=== PATIENT | female | born 1935 | race Caucasian/White ===

== ENCOUNTER 2016-10-05 13:34 | Outpatient (CLI) | payer MEDICARE, OTHER ==
--- NOTE | 2016-10-05 15:45 | Diagnostic Imaging Report ---
CARLOS MCKEON [facility] [address] [facility] [address] [place] [address]. [id number] Report Submission Date: Oct 05, 2016 3:21:36 PM CDT Patient Study Name: CAROLINE CHUN Date: Oct 05, 2016 1:57:49 PM CDT Modality Type: CR Gender: F Description: SPINE : 37 Institution: [facility] Physician: CARLOS MCKEON 3 views lumbar spine History: L-SPINE, WORSENING LOW BACK PAIN, FALL ON 10/03/16 Findings: No comparison studies Patient is post posterior lumbar fusion [id number] S1, sparing L2. Disc spacers at L4-L5. Hardware is intact. Extensive degenerative changes at the thoracic and lumbar spine with multilevel decreased vertebral body heights. No acute fracture. Minimal grade I anterolisthesis L4 on L5 and appears chronic Impression: Lower thoracic and lumbar posterior fusion, intact hardware. No acute fracture. Extensive multilevel degenerative changes Grade I anterolisthesis L4 on L5. Electronically signed on Oct 05, 2016 3:21:36 PM CDT by: Yolanda RIOS
--- NOTE | 2016-10-05 15:46 | Diagnostic Imaging Report ---
CARLOS MCKEON [facility] [address] [employer] [address] [place], [place]. [address] Report Submission Date: Oct 05, 2016 3:13:43 PM CDT Patient Study Name: CAROLINE CHUN Date: Oct 05, 2016 2:02:17 PM CDT Modality Type: CR Gender: F Description: SHOULDER : 37 Institution: [facility] Physician: CARLOS MCKEON 3 views of the left shoulder History: LEFT SHOULDER, PAIN IN SHOULDER SINCE FALL ON 10/03/16 Findings: No comparison studies Bones are demineralized. Humeral head is high riding suggestive of rotator cuff pathology Extensive degenerative changes are noted at the acromioclavicular joint, humeral head. There is sclerosis at the humeral neck. There is no fracture fragment identified. No dislocation. Impression: 1. Band of sclerosis at left humeral neck, related to architecture versus questionable impacted fracture. No fracture fragment or dislocation seen. Consider CT/ MR evaluation 2. Extensive degenerative changes at the acromioclavicular joint and left humeral head. 3. Humeral head is high riding suggestive of rotator cuff pathology. Electronically signed on Oct 05, 2016 3:13:43 PM CDT by: Yolanda RIOS
== END 2016-10-05 13:35 ==
LOC: RAD 13:34
PROVIDERS: ATTEND Family Medicine
DX: M25.512 Pain in left shoulder (principal); M54.5 Low back pain
CPT/HCPCS: 72100; 73030

== ENCOUNTER 2018-01-04 12:05 | Inpatient (IN) | payer MEDICARE, OTHER ==
[2018-01-04 13:54] VITALS: BMI 25.7
[2018-01-04] MEDS ORDERED: ACETAMINOPHEN 325 MG TABLET PO PRN (14:14)
--- NOTE | 2018-01-04 14:26 | History and Physical Report ---
History of Present Illnes - History of Present Illness Reason for Visit: left hip fracture/hemiarthroplasty History of Present Illness: This is an 82 year old female, patient of Dr. Braxton who last Saturday had a fall in the bathroom of her home and incurred a fracture of her left hip. She was transported to [facility] for evaluation. On the day after the injury, Dr. Kt Sanders took her to the ER and she had a left hip arthroplasty. She had some bleeding during the surgery and was mildly thrombocytopenic, and as a result, Dr. Sanders has recommended against any anticoagulation for DVT prophylaxis postoperatively. Her post operative course has been unremarkable. Her hemoglobin this morning is 11.0, and her platelets are 101. She is having some pain, but says that the hydrocodone has been helpful in relieving this. She voices understanding that she is here for PT/OT. Her family is here at the bedside. - Past Medical History Cardiac: denies: CAD Pulmonary: denies: Other ACCOUNTANT: denies: CVA Gastrointestinal: Constipation, Other (large umbilical hernia) Heme/Onc: Anemia NOS (mild, postoperative) Hepatobiliary: denies: Cirrhosis Psych: Depression Musculoskeletal: Osteoarthritis (s/p right knee, lumbar fusion) Rheumatologic: denies: Other Infectious Disease: denies: Other ENT: denies: Other Renal/: denies: Chronic renal insuff Endocrine: denies: Diabetes Dermatology: denies: Other - Past Surgical History Past Surgical History: Cholecystectomy (open), Total Knee Replacement (left), Other (lumbar fusion) - Past Social History Smoke: No Alcohol: None Drugs: None Lives: Alone (but with very close family support) Domestic Violence: Negative - Health Maintenance Health Maintenance: Cholesterol Influenza Vaccine: Current for this Influenza Season Pneumonia Vaccine: Yes Resuscitation Status: Resusciation Status Resuscitation Status Full Code - Unable to Obtain History Unable to Obtain: No Review of Systems - Review of Systems Constitutional: negative: Fever, Chills Eyes: pain (left hip) ENT: negative: Ear Pain Respiratory: negative: Cough Cardiovascular: negative: Chest Pain Gastrointestinal: negative: Nausea, Vomiting Genitourinary: negative: Dysuria Musculoskeletal: negative: Neck Pain Skin: negative: Rash Neurological: Weakness. negative: Change in Speech, Confusion - Medications/Allergies Allergies/Adverse Reactions: Allergies Allergy/AdvReac Type Severity Reaction Status Date / Time Penicillins Allergy Rash Verified 01/04/18 13:03 Current Inpatient Medications: Current Inpatient Medications Acetaminophen (Tylenol) 650 mg PO Q6H PRN PRN Reason: Fever >101 Cholecalciferol (Vitamin D-3) 2,000 unit PO DAILY [facility] Docusate Sodium (Colace) 100 mg PO [id number] [facility] Fish Oil () 1,000 mg PO DAILY [facility] Sertraline HCl (Zoloft) 50 mg PO DAILY [facility] Exam - Exam Vital Signs: Vital Signs (72 hours) 01/04/18 12:59 Temperature 98.2 F Pulse Rate [ 80 Right Apical] Respiratory 20 Rate Blood Pressure 121/66 [Left Arm] O2 Sat by Pulse 95 Oximetry General: Alert, Oriented to Person, Oriented to Place, Oriented to Time, Cooperative HEENT: Atraumatic, PERRLA, EOMI Neck: No: Stridor, Rigidity Lungs: Clear to auscultation, Normal air movement, Speaks full Sentences. No: Respiratory Distress, Wheezes Cardiovascular: Regularly Irregular Murmur: Systolic Murmur (II/ KELSEY) Abdomen: Normal bowel sounds, Umbilical Hernia (large and reducible) Genitourinary: No: Other Male Genitourinary: No: Other Female Genitourinary: No: Other Integumentary: No: Rash Extremities: No clubbing, No cyanosis, No edema, Other (left hip incision is dry/without drainage or redness. Approximated with kaylah) Neurological: Normal speech, Strength Equal Bilat Psych/Mental Status: Mental status NL Assessment/Plan - Assessment/Plan (1) Closed left hip fracture Status: Acute Current Visit: Yes Qualifiers: Encounter type: initial encounter Qualified Code(s): S72.002A - Fracture of unspecified part of neck of left femur, initial encounter for closed fracture Assessment: S/P left hemiarthroplasty Plan: OT/PT Dr. Sanders has recommended against DVT prophylaxis (2) Postoperative anemia Status: Acute Current Visit: Yes Assessment: Mild with hemoglobin of 11.0 Plan: Check CBC in the AM (3) Depression Status: Acute Current Visit: Yes Qualifiers: Depression Type: major depressive disorder Major depression recurrence: recurrent Active/Remission status: currently active Major depression episode severity: moderate Qualified Code(s): F33.1 - Major depressive disorder, recurrent, moderate Assessment: Continue sertraline at 25 mg po qd Plan: Continue sertraline 50 mg daily (4) Thrombocytopenia Status: Acute Current Visit: Yes Assessment: Mild Plan: Check CBC tomorrow (5) Umbilical hernia Status: Acute Current Visit: Yes Assessment: Reducible, present for 25 years Plan: Watch for incarceration VTE Assessment - RISK FACTOR SCORE VTE RISK FACTOR SCORES: AGE OVER 60 YEARS, ANTICIPATED BED CONFINEMENT OR IMMOBILIZATION > 24 HOURS - RISK VTE MODERATE RISK: SCORE OF 2 (RISK PROXIMAL DVT 2-4%) PROPHYAXIS NEEDED (Dr. Sanders recommends against DVT prophylaxis)
[2018-01-04] MEDS: HYDROcodone /APAP 5/325 1 EACH TABLET PO PRN ×2 (17:49→22:37)
[2018-01-05 06:44] LABS: BASOPHILS % 0.4 (0.0-1.5); EOSINOPHILS % 3.7 % (0.0-6.8); MEAN CORPUSCULAR HEMOGLOBIN 29.7 pg (28.0-34.0); MEAN CORPUSCULAR VOLUME 88.7 fl (80.0-100.0); MONOCYTES % 6.2 % (0.0-11.0)
[2018-01-05 06:48] LABS: eGFR (Non-African) > 60
[2018-01-05] MEDS: CHOLECALCIFEROL (VIT D3) 1,000 UNIT TABLET PO SCH (09:15)
[2018-01-05] MEDS: FISH OIL 1,000 MG CAP PO SCH (09:16)
[2018-01-05] MEDS: SERTRALINE HCL 50 MG TABLET PO SCH (09:16)
[2018-01-05] MEDS ORDERED: traMADol HCL 50 MG TABLET ONE (10:24)
[2018-01-05] MEDS: HYDROcodone /APAP 5/325 1 EACH TABLET PO PRN ×2 (10:28→20:52)
[2018-01-06] MEDS: HYDROcodone /APAP 5/325 1 EACH TABLET PO PRN ×3 (03:19→21:05)
[2018-01-06] MEDS: FISH OIL 1,000 MG CAP PO SCH (09:28)
[2018-01-06] MEDS: DOCUSATE SODIUM 100 MG CAPSULE PO SCH (09:28)
[2018-01-06] MEDS: CHOLECALCIFEROL (VIT D3) 1,000 UNIT TABLET PO SCH (09:28)
[2018-01-06] MEDS: SERTRALINE HCL 50 MG TABLET PO SCH (09:28)
[2018-01-07] MEDS: SERTRALINE HCL 50 MG TABLET PO SCH (08:18)
[2018-01-07] MEDS: CHOLECALCIFEROL (VIT D3) 1,000 UNIT TABLET PO SCH (08:18)
[2018-01-07] MEDS: FISH OIL 1,000 MG CAP PO SCH (08:18)
[2018-01-07] MEDS: HYDROcodone /APAP 5/325 1 EACH TABLET PO PRN (22:19)
[2018-01-08] MEDS: HYDROcodone /APAP 5/325 1 EACH TABLET PO PRN ×2 (06:45→20:58)
--- NOTE | 2018-01-08 08:03 | Inpatient Progress Note ---
Subjective - Required Recertification Statement I anticipate X number of days because-include discharge plan: 10 - Review of Systems Subjective: Patient says she feels ok. Not bearing weight on fractured side yet. She doesn't know why she isn't. Objective - Exam Vitals and I&O: Vital Signs Temp 98.6 F 01/07/18 21:00 Pulse 86 01/07/18 21:00 Resp 20 01/07/18 21:00 BP 144/81 01/07/18 21:00 Pulse Ox 93 01/07/18 21:00 Intake & Output 01/07/18 01/07/18 01/08/18 11:59 23:59 11:59 Intake Total 120 750 120 Balance 120 750 120 Intake: Oral 120 750 120 Other: Voiding Method Diaper Diaper # Voids 2 3 1 General: Alert, Oriented to Person, Cooperative. No: Oriented to Place, Oriente d to Time Lungs: Clear to auscultation Cardiovascular: Irregularly Irregular - Results Results: Laboratory Results WBC 8.10 K/ul (4.00-12.00) 01/05/18 05:30 RBC 3.78 M/ul (3.90-5.20) L 01/05/18 05:30 Hgb 11.2 g/dL (12.0-16.0) L 01/05/18 05:30 Hct 33.5 % (34.5-46.5) L 01/05/18 05:30 MCV 88.7 fl (80.0-100.0) 01/05/18 05:30 MCH 29.7 pg (28.0-34.0) 01/05/18 05:30 MCHC 33.5 g/dL (30.0-36.0) 01/05/18 05:30 RDW 14.4 % (11.3-14.3) H 01/05/18 05:30 Plt Count 155 K/mm3 (130-400) 01/05/18 05:30 Neut % (Auto) 73.1 % (39.0-79.0) 01/05/18 05:30 Lymph % (Auto) 15.7 % (16.0-50.0) L 01/05/18 05:30 [place] % (Auto) 6.2 % (0.0-11.0) 01/05/18 05:30 Eos % (Auto) 3.7 % (0.0-6.8) 01/05/18 05:30 Baso % (Auto) 0.4 (0.0-1.5) 01/05/18 05:30 Neut # (Auto) 6.0 # k/uL (1.4-7.7) 01/05/18 05:30 Lymph # (Auto) 1.3 # k/uL (0.6-4.0) 01/05/18 05:30 [place] # (Auto) 0.5 # k/uL (0.0-0.9) 01/05/18 05:30 Eos # (Auto) 0.3 # k/uL (0.0-0.6) 01/05/18 05:30 Baso # (Auto) 0.0 # k/uL (0.0-0.5) 01/05/18 05:30 Reactive Lymphs % 1.0 % (0.0-5.0) 01/05/18 05:30 Reactive Lymphs # 0.1 # k/uL (0.0-0.8) 01/05/18 05:30 Sodium 135 mmol/L (136-145) L 01/05/18 05:30 Potassium 3.1 mmol/L (3.5-5.1) L 01/05/18 05:30 Chloride 103 mmol/L (98-107) 01/05/18 05:30 Carbon Dioxide 27 mmol/L (22-30) 01/05/18 05:30 BUN 12 mg/dL (7-17) 01/05/18 05:30 Creatinine 0.50 mg/dL (0.52-1.04) L 01/05/18 05:30 Estimated Creat Clear 105 01/05/18 05:30 Est GFR ( Amer) > 60 (60-) 01/05/18 05:30 Est GFR (Non-Af Amer) > 60 (60-) 01/05/18 05:30 Glucose 93 mg/dL (74-106) 01/05/18 05:30 Calcium 8.9 mg/dL (8.4-10.2) 01/05/18 05:30 Total Bilirubin 0.7 mg/dL (0.2-1.3) 01/05/18 05:30 AST 22 U/L (15-46) 01/05/18 05:30 ALT 23 U/L (13-69) 01/05/18 05:30 Alkaline Phosphatase 77 U/L (38-126) 01/05/18 05:30 Total Protein 5.9 g/dL (6.3-8.2) L 01/05/18 05:30 Albumin 3.1 g/dL (3.5-5.0) L 01/05/18 05:30 Assessment/Plan - Assessment/Plan (1) Irregular heart rhythm Status: Acute Current Visit: Yes Plan: I can't find a h/o afib in her chart - will contact her PCP after I get an EKG. Recheck platelets today. Returned to normal 3 days ago. If in Afib and platelets normal will discuss anticoagulation.
[2018-01-08] MEDS: CHOLECALCIFEROL (VIT D3) 1,000 UNIT TABLET PO SCH (08:49)
[2018-01-08] MEDS: FISH OIL 1,000 MG CAP PO SCH (08:49)
[2018-01-08] MEDS: DOCUSATE SODIUM 100 MG CAPSULE PO SCH ×2 (08:50→09:00)
[2018-01-08] MEDS: SERTRALINE HCL 50 MG TABLET PO SCH ×2 (08:50→09:00)
[2018-01-08] MEDS: ACETAMINOPHEN 500 MG TABLET PO SCH ×3 (08:53→20:56)
[2018-01-08] MEDS: OMEGA PO SCH (09:00)
[2018-01-08] MEDS: DHA PO SCH (09:00)
[2018-01-08] MEDS: EPA PO SCH (09:00)
[2018-01-08] MEDS: CHOLECALCIFEROL 2000 UNIT PO SCH (09:00)
[2018-01-08] MEDS: FISH OIL PO SCH (09:00)
[2018-01-08] MEDS ORDERED: POLYETHYLENE GLYCOL 3350 17 GM POWD.PACK PO SCH (11:00)
[2018-01-08 11:38] LABS: MEAN CORPUSCULAR VOLUME 87.9 fl (80.0-100.0)
[2018-01-08] MEDS ORDERED: CHOLECALCIFEROL (VIT D3) 1,000 UNIT TABLET PO ONE (22:52)
[2018-01-09] MEDS: ACETAMINOPHEN 500 MG TABLET PO SCH ×4 (01:22→20:59)
[2018-01-09] MEDS: DOCUSATE SODIUM 100 MG CAPSULE PO SCH (10:05)
[2018-01-09] MEDS: CHOLECALCIFEROL (VIT D3) 1,000 UNIT TABLET PO SCH (10:05)
[2018-01-09] MEDS: SERTRALINE HCL 50 MG TABLET PO SCH (10:05)
[2018-01-09] MEDS: HYDROcodone /APAP 5/325 1 EACH TABLET PO PRN (10:05)
[2018-01-09] MEDS: FISH OIL 1,000 MG CAP PO SCH (10:05)
[2018-01-09] MEDS: OMEGA PO SCH (10:10)
[2018-01-09] MEDS: DHA PO SCH (10:10)
[2018-01-09] MEDS: EPA PO SCH (10:10)
[2018-01-09] MEDS: CHOLECALCIFEROL 2000 UNIT PO SCH (10:10)
[2018-01-09] MEDS: FISH OIL PO SCH (10:10)
[2018-01-10] MEDS: ACETAMINOPHEN 500 MG TABLET PO SCH ×4 (01:04→19:29)
[2018-01-10] MEDS: HYDROcodone /APAP 5/325 1 EACH TABLET PO PRN (05:26)
[2018-01-10] MEDS: CHOLECALCIFEROL (VIT D3) 1,000 UNIT TABLET PO SCH (08:53)
[2018-01-10] MEDS: DOCUSATE SODIUM 100 MG CAPSULE PO SCH (08:53)
[2018-01-10] MEDS: FISH OIL 1,000 MG CAP PO SCH (08:53)
[2018-01-10] MEDS: SERTRALINE HCL 50 MG TABLET PO SCH (08:53)
[2018-01-11] MEDS: ACETAMINOPHEN 500 MG TABLET PO SCH ×5 (01:48→20:06)
[2018-01-11] MEDS: CHOLECALCIFEROL (VIT D3) 1,000 UNIT TABLET PO SCH ×2 (08:44→08:48)
[2018-01-11] MEDS: DOCUSATE SODIUM 100 MG CAPSULE PO SCH (08:44)
[2018-01-11] MEDS: SERTRALINE HCL 50 MG TABLET PO SCH ×2 (08:44→08:48)
[2018-01-11] MEDS: FISH OIL 1,000 MG CAP PO SCH (11:05)
[2018-01-11] MEDS: HYDROcodone /APAP 5/325 1 EACH TABLET PO PRN (20:05)
[2018-01-12] MEDS: ACETAMINOPHEN 500 MG TABLET PO SCH ×4 (01:59→20:35)
[2018-01-12] MEDS: DOCUSATE SODIUM 100 MG CAPSULE PO SCH (09:05)
[2018-01-12] MEDS: CHOLECALCIFEROL (VIT D3) 1,000 UNIT TABLET PO SCH (09:05)
[2018-01-12] MEDS: FISH OIL 1,000 MG CAP PO SCH (09:06)
[2018-01-12] MEDS: SERTRALINE HCL 50 MG TABLET PO SCH (09:06)
[2018-01-12] MEDS: HYDROcodone /APAP 5/325 1 EACH TABLET PO PRN ×2 (13:30→17:25)
[2018-01-12] MEDS: POLYETHYLENE GLYCOL 3350 17 GM POWD.PACK PO PRN (13:30)
[2018-01-13] MEDS: ACETAMINOPHEN 500 MG TABLET PO SCH ×4 (01:03→19:58)
[2018-01-13] MEDS: HYDROcodone /APAP 5/325 1 EACH TABLET PO PRN ×3 (08:41→19:56)
[2018-01-13] MEDS: POLYETHYLENE GLYCOL 3350 17 GM POWD.PACK PO PRN (08:41)
[2018-01-13] MEDS: DOCUSATE SODIUM 100 MG CAPSULE PO SCH (08:42)
[2018-01-13] MEDS: SERTRALINE HCL 50 MG TABLET PO SCH (08:42)
[2018-01-13] MEDS: CHOLECALCIFEROL (VIT D3) 1,000 UNIT TABLET PO SCH (08:42)
[2018-01-13] MEDS: FISH OIL 1,000 MG CAP PO SCH (10:09)
[2018-01-14] MEDS: ACETAMINOPHEN 500 MG TABLET PO SCH ×4 (04:34→21:42)
--- NOTE | 2018-01-14 07:44 | Inpatient Progress Note ---
Subjective - Required Recertification Statement I anticipate X number of days because-include discharge plan: 10 - Review of Systems Subjective: Patient is finally taking a few steps on the parallel bars and doing better with transfers. She has significant dementia at times - today doesn't know if she walked yesterday or not and doesn't remember she broke her hip, much less what side. Objective - Exam Vitals and I&O: Vital Signs Temp 98.5 F 01/13/18 21:00 Pulse 70 01/13/18 21:00 Resp 18 01/13/18 21:00 BP 122/61 01/13/18 21:00 Pulse Ox 92 01/13/18 21:00 Intake & Output 01/13/18 01/13/18 01/14/18 11:59 23:59 11:59 Intake Total 60 380 Balance 60 380 Weight 64.343 kg Intake: Oral 60 380 Other: Voiding Method Diaper Diaper # Voids 2 2 3 # Bowel Movements 1 General: Alert, Oriented to Person, Cooperative, No acute distress. No: Oriented to Place, Oriented to Time Lungs: Clear to auscultation, Normal air movement, Speaks full Sentences Cardiovascular: Regular rate Extremities: No edema - Results Results: Laboratory Results WBC 8.20 K/ul (4.00-12.00) 01/08/18 08:04 RBC 3.98 M/ul (3.90-5.20) 01/08/18 08:04 Hgb 11.9 g/dL (12.0-16.0) L 01/08/18 08:04 Hct 35.0 % (34.5-46.5) 01/08/18 08:04 MCV 87.9 fl (80.0-100.0) 01/08/18 08:04 MCH 30.0 pg (28.0-34.0) 01/08/18 08:04 MCHC 34.1 g/dL (30.0-36.0) 01/08/18 08:04 RDW 14.9 % (11.3-14.3) H 01/08/18 08:04 Plt Count 225 K/mm3 (130-400) 01/08/18 08:04 Neut % (Auto) 73.1 % (39.0-79.0) 01/05/18 05:30 Lymph % (Auto) 15.7 % (16.0-50.0) L 01/05/18 05:30 [place] % (Auto) 6.2 % (0.0-11.0) 01/05/18 05:30 Eos % (Auto) 3.7 % (0.0-6.8) 01/05/18 05:30 Baso % (Auto) 0.4 (0.0-1.5) 01/05/18 05:30 Neut # (Auto) 6.0 # k/uL (1.4-7.7) 01/05/18 05:30 Lymph # (Auto) 1.3 # k/uL (0.6-4.0) 01/05/18 05:30 [place] # (Auto) 0.5 # k/uL (0.0-0.9) 01/05/18 05:30 Eos # (Auto) 0.3 # k/uL (0.0-0.6) 01/05/18 05:30 Baso # (Auto) 0.0 # k/uL (0.0-0.5) 01/05/18 05:30 Reactive Lymphs % 1.0 % (0.0-5.0) 01/05/18 05:30 Reactive Lymphs # 0.1 # k/uL (0.0-0.8) 01/05/18 05:30 Sodium 135 mmol/L (136-145) L 01/05/18 05:30 Potassium 3.1 mmol/L (3.5-5.1) L 01/05/18 05:30 Chloride 103 mmol/L (98-107) 01/05/18 05:30 Carbon Dioxide 27 mmol/L (22-30) 01/05/18 05:30 BUN 12 mg/dL (7-17) 01/05/18 05:30 Creatinine 0.50 mg/dL (0.52-1.04) L 01/05/18 05:30 Estimated Creat Clear 105 01/05/18 05:30 Est GFR ( Amer) > 60 (60-) 01/05/18 05:30 Est GFR (Non-Af Amer) > 60 (60-) 01/05/18 05:30 Glucose 93 mg/dL (74-106) 01/05/18 05:30 Calcium 8.9 mg/dL (8.4-10.2) 01/05/18 05:30 Total Bilirubin 0.7 mg/dL (0.2-1.3) 01/05/18 05:30 AST 22 U/L (15-46) 01/05/18 05:30 ALT 23 U/L (13-69) 01/05/18 05:30 Alkaline Phosphatase 77 U/L (38-126) 01/05/18 05:30 Total Protein 5.9 g/dL (6.3-8.2) L 01/05/18 05:30 Albumin 3.1 g/dL (3.5-5.0) L 01/05/18 05:30 Assessment/Plan - Assessment/Plan (1) Irregular heart rhythm Status: Acute Current Visit: Yes (2) Dementia Status: Acute Current Visit: Yes (3) Closed left hip fracture Status: Acute Current Visit: Yes Qualifiers: Encounter type: initial encounter Qualified Code(s): S72.002A - Fracture of unspecified part of neck of left femur, initial encounter for closed fracture (4) Thrombocytopenia Status: Acute Current Visit: Yes Plan: Dr. Sanders held anticoagulation due to low platelets. These have been normal here. Due to patient having such limited activity, I am going to start xarelto 10 mg daily. Watch platelets closely. Will talk to therapy about getting speech therapy involved due to cognition.
[2018-01-14] MEDS: DOCUSATE SODIUM 100 MG CAPSULE PO SCH (08:51)
[2018-01-14] MEDS: SERTRALINE HCL 50 MG TABLET PO SCH (08:51)
[2018-01-14] MEDS: CHOLECALCIFEROL (VIT D3) 1,000 UNIT TABLET PO SCH (08:51)
[2018-01-14] MEDS: HYDROcodone /APAP 5/325 1 EACH TABLET PO PRN ×2 (09:09→13:27)
[2018-01-14] MEDS: FISH OIL 1,000 MG CAP PO SCH (09:10)
[2018-01-14] MEDS ORDERED: RIVAROXABAN 10 MG TABLET PO ONE (14:41)
[2018-01-14] MEDS ORDERED: TAMSULOSIN HCL 0.4 MG CAP.ER.24H PO ONE (16:25)
[2018-01-14] MEDS: RIVAROXABAN 10 MG TABLET PO SCH (21:43)
[2018-01-15] MEDS: ACETAMINOPHEN 500 MG TABLET PO SCH ×4 (02:21→20:32)
[2018-01-15] MEDS: CHOLECALCIFEROL (VIT D3) 1,000 UNIT TABLET PO SCH (08:03)
[2018-01-15] MEDS: SERTRALINE HCL 50 MG TABLET PO SCH (08:03)
[2018-01-15] MEDS: DOCUSATE SODIUM 100 MG CAPSULE PO SCH (08:03)
[2018-01-15] MEDS: FISH OIL 1,000 MG CAP PO SCH (11:46)
[2018-01-15] MEDS: HYDROcodone /APAP 5/325 1 EACH TABLET PO PRN (18:39)
[2018-01-15] MEDS: RIVAROXABAN 10 MG TABLET PO SCH (20:32)
[2018-01-16] MEDS: ACETAMINOPHEN 500 MG TABLET PO SCH ×4 (02:26→20:35)
[2018-01-16] MEDS: DOCUSATE SODIUM 100 MG CAPSULE PO SCH (09:24)
[2018-01-16] MEDS: CHOLECALCIFEROL (VIT D3) 1,000 UNIT TABLET PO SCH (09:24)
[2018-01-16] MEDS: SERTRALINE HCL 50 MG TABLET PO SCH (09:24)
[2018-01-16] MEDS: FISH OIL 1,000 MG CAP PO SCH (10:52)
[2018-01-16 18:21] LABS: BASO % 0.6 % (0.0-1.5); EOS % 4.6 % (0.0-6.8); LYMPH ABS # 1.72 thou/uL (0.60-4.00); MCH. 29.7 pg (28.0-34.0); MCV 89.9 fL (80.0-100.0); MONOCYTE % 7.1 % (0.0-11.0); MONOCYTE ABS # 0.53 thou/uL (0.00-0.90); PLATELET COUNT 263 thou/uL (130-400)
[2018-01-16] MEDS: HYDROcodone /APAP 5/325 1 EACH TABLET PO PRN (19:27)
[2018-01-16] MEDS: RIVAROXABAN 10 MG TABLET PO SCH (20:35)
[2018-01-17] MEDS: ACETAMINOPHEN 500 MG TABLET PO SCH ×4 (01:27→20:25)
[2018-01-17] MEDS: CHOLECALCIFEROL (VIT D3) 1,000 UNIT TABLET PO SCH (07:51)
[2018-01-17] MEDS: DOCUSATE SODIUM 100 MG CAPSULE PO SCH (07:51)
[2018-01-17] MEDS: SERTRALINE HCL 50 MG TABLET PO SCH (07:51)
[2018-01-17] MEDS: HYDROcodone /APAP 5/325 1 EACH TABLET PO PRN (08:54)
[2018-01-17] MEDS: FISH OIL 1,000 MG CAP PO SCH (10:19)
[2018-01-17] MEDS: RIVAROXABAN 10 MG TABLET PO SCH (20:25)
[2018-01-18] MEDS: ACETAMINOPHEN 500 MG TABLET PO SCH ×4 (01:28→20:33)
[2018-01-18] MEDS: SERTRALINE HCL 50 MG TABLET PO SCH (08:09)
[2018-01-18] MEDS: CHOLECALCIFEROL (VIT D3) 1,000 UNIT TABLET PO SCH (08:10)
[2018-01-18] MEDS: DOCUSATE SODIUM 100 MG CAPSULE PO SCH (08:10)
[2018-01-18] MEDS: FISH OIL 1,000 MG CAP PO SCH (10:01)
[2018-01-18] MEDS: RIVAROXABAN 10 MG TABLET PO SCH (20:33)
[2018-01-19] MEDS: ACETAMINOPHEN 500 MG TABLET PO SCH ×4 (01:54→20:36)
[2018-01-19] MEDS: CHOLECALCIFEROL (VIT D3) 1,000 UNIT TABLET PO SCH (09:16)
[2018-01-19] MEDS: DOCUSATE SODIUM 100 MG CAPSULE PO SCH (09:16)
[2018-01-19] MEDS: SERTRALINE HCL 50 MG TABLET PO SCH (09:16)
[2018-01-19] MEDS: FISH OIL 1,000 MG CAP PO SCH (09:16)
[2018-01-19] MEDS: HYDROcodone /APAP 5/325 1 EACH TABLET PO PRN (19:40)
[2018-01-19] MEDS: RIVAROXABAN 10 MG TABLET PO SCH (20:37)
[2018-01-20] MEDS: ACETAMINOPHEN 500 MG TABLET PO SCH ×4 (01:09→20:09)
[2018-01-20] MEDS: CHOLECALCIFEROL (VIT D3) 1,000 UNIT TABLET PO SCH (09:30)
[2018-01-20] MEDS: FISH OIL 1,000 MG CAP PO SCH (09:35)
[2018-01-20] MEDS: DOCUSATE SODIUM 100 MG CAPSULE PO SCH (09:35)
[2018-01-20] MEDS: SERTRALINE HCL 50 MG TABLET PO SCH (09:36)
[2018-01-20 11:11] LABS: BASO % 0.6 % (0.0-1.5); EOS % 6.3 % (0.0-6.8); MCH. 29.4 pg (28.0-34.0); MCV 90.3 fL (80.0-100.0); MONOCYTE % 7.3 % (0.0-11.0); MONOCYTE ABS # 0.42 thou/uL (0.00-0.90); PLATELET COUNT 232 thou/uL (130-400)
[2018-01-20] MEDS: RIVAROXABAN 10 MG TABLET PO SCH (20:09)
[2018-01-21] MEDS: ACETAMINOPHEN 500 MG TABLET PO SCH ×4 (03:18→19:59)
[2018-01-21] MEDS: DOCUSATE SODIUM 100 MG CAPSULE PO SCH (08:08)
[2018-01-21] MEDS: CHOLECALCIFEROL (VIT D3) 1,000 UNIT TABLET PO SCH (08:08)
[2018-01-21] MEDS: SERTRALINE HCL 50 MG TABLET PO SCH (08:08)
[2018-01-21] MEDS: HYDROcodone /APAP 5/325 1 EACH TABLET PO PRN (12:53)
[2018-01-21] MEDS: FISH OIL 1,000 MG CAP PO SCH (12:55)
[2018-01-21] MEDS: RIVAROXABAN 10 MG TABLET PO SCH (21:06)
[2018-01-22] MEDS: ACETAMINOPHEN 500 MG TABLET PO SCH ×4 (02:14→21:01)
[2018-01-22] MEDS: CHOLECALCIFEROL (VIT D3) 1,000 UNIT TABLET PO SCH (08:55)
[2018-01-22] MEDS: FISH OIL 1,000 MG CAP PO SCH (08:56)
[2018-01-22] MEDS: DOCUSATE SODIUM 100 MG CAPSULE PO SCH (08:56)
[2018-01-22] MEDS: SERTRALINE HCL 50 MG TABLET PO SCH (08:56)
[2018-01-22] MEDS: HYDROcodone /APAP 5/325 1 EACH TABLET PO PRN ×2 (08:58→14:30)
--- NOTE | 2018-01-22 09:39 | Inpatient Progress Note ---
Subjective - Required Recertification Statement I anticipate X number of days because-include discharge plan: 14 - Review of Systems Subjective: Patient doing ok. Staff has concerns about her going home on her own - family is having a meeting today. Patient has no complaints today. Objective - Exam Vitals and I&O: Vital Signs Temp 98.5 F 01/22/18 09:00 Pulse 75 01/22/18 09:00 Resp 16 01/22/18 09:00 BP 120/64 01/22/18 09:00 Pulse Ox 93 01/22/18 09:00 Intake & Output 01/21/18 01/21/18 01/22/18 11:59 23:59 11:59 Intake Total 340 760 360 Balance 340 760 360 Intake: Oral 340 760 360 Other: Voiding Method Diaper Diaper # Voids 1 2 3 General: Alert, Oriented to Person, Cooperative. No: Oriented to Place, Oriented to Time Lungs: Clear to auscultation, Normal air movement, Speaks full Sentences Cardiovascular: Irregularly Irregular - Results Results: Laboratory Results WBC 8.20 K/ul (4.00-12.00) 01/08/18 08:04 WBC Comment 5.73 thou/uL (4.00-12.00) 01/20/18 05:45 RBC 4.01 mil/uL (3.90-5.20) 01/20/18 05:45 Hgb 11.9 g/dL (12.0-16.0) L 01/08/18 08:04 Hemoglobin (Send Out) 11.8 g/dL (11.5-16.0) 01/20/18 05:45 Hct 35.0 % (34.5-46.5) 01/08/18 08:04 Hct (Send Out) 36.2 % (34.5-46.5) 01/20/18 05:45 MCV 87.9 fl (80.0-100.0) 01/08/18 08:04 MCV (Send Out) 90.3 fL (80.0-100.0) 01/20/18 05:45 MCH 29.4 pg (28.0-34.0) 01/20/18 05:45 MCHC 34.1 g/dL (30.0-36.0) 01/08/18 08:04 MCHC (Send Out) 32.6 g/dL (30.0-36.0) 01/20/18 05:45 RDW 14.9 % (11.3-14.3) H 01/08/18 08:04 RDW Coeff of Candace 15.1 % (11.3-14.7) H 01/20/18 05:45 Plt Count 232 thou/uL (130-400) 01/20/18 05:45 Neut % (Auto) 73.1 % (39.0-79.0) 01/05/18 05:30 Lymph % (Auto) 15.7 % (16.0-50.0) L 01/05/18 05:30 [place] % (Auto) 6.2 % (0.0-11.0) 01/05/18 05:30 Eos % (Auto) 3.7 % (0.0-6.8) 01/05/18 05:30 Baso % (Auto) 0.4 (0.0-1.5) 01/05/18 05:30 Neut # (Auto) 6.0 # k/uL (1.4-7.7) 01/05/18 05:30 Lymph # (Auto) 1.3 # k/uL (0.6-4.0) 01/05/18 05:30 [place] # (Auto) 0.5 # k/uL (0.0-0.9) 01/05/18 05:30 Eos # (Auto) 0.3 # k/uL (0.0-0.6) 01/05/18 05:30 Baso # (Auto) 0.0 # k/uL (0.0-0.5) 01/05/18 05:30 Absolute Lymphs (auto) 1.60 thou/uL (0.60-4.00) 01/20/18 05:45 Absolute Monos (auto) 0.42 thou/uL (0.00-0.90) 01/20/18 05:45 Absolute Basos (auto) 0.03 thou/uL (0.00-0.50) 01/20/18 05:45 Neutrophils % 57.9 % (39.0-79.0) 01/20/18 05:45 Reactive Lymphs % 1.0 % (0.0-5.0) 01/05/18 05:30 Absolute Neutrophils 3.32 thou/uL (1.50-7.70) 01/20/18 05:45 Lymphocytes 27.9 % (16.0-50.0) 01/20/18 05:45 Reactive Lymphs # 0.1 # k/uL (0.0-0.8) 01/05/18 05:30 Monocytes 7.3 % (0.0-11.0) 01/20/18 05:45 Absolute Eosinophils 0.36 thou/uL (0.00-0.60) 01/20/18 05:45 Basophilia % 0.6 % (0.0-1.5) 01/20/18 05:45 Eosinophil Count 6.3 % (0.0-6.8) 01/20/18 05:45 Sodium 135 mmol/L (136-145) L 01/05/18 05:30 Potassium 3.1 mmol/L (3.5-5.1) L 01/05/18 05:30 Chloride 103 mmol/L (98-107) 01/05/18 05:30 Carbon Dioxide 27 mmol/L (22-30) 01/05/18 05:30 BUN 12 mg/dL (7-17) 01/05/18 05:30 Creatinine 0.50 mg/dL (0.52-1.04) L 01/05/18 05:30 Estimated Creat Clear 105 01/05/18 05:30 Est GFR ( Amer) > 60 (60-) 01/05/18 05:30 Est GFR (Non-Af Amer) > 60 (60-) 01/05/18 05:30 Glucose 93 mg/dL (74-106) 01/05/18 05:30 Calcium 8.9 mg/dL (8.4-10.2) 01/05/18 05:30 Total Bilirubin 0.7 mg/dL (0.2-1.3) 01/05/18 05:30 AST 22 U/L (15-46) 01/05/18 05:30 ALT 23 U/L (13-69) 01/05/18 05:30 Alkaline Phosphatase 77 U/L (38-126) 01/05/18 05:30 Total Protein 5.9 g/dL (6.3-8.2) L 01/05/18 05:30 Albumin 3.1 g/dL (3.5-5.0) L 01/05/18 05:30 Assessment/Plan - Assessment/Plan (1) Irregular heart rhythm Status: Acute Current Visit: Yes Plan: EKG review does show Afib. I will discuss with Dr. Rincon today - suspect he has not anticoagulated her due to falls and dementia. (2) Dementia Status: Acute Current Visit: Yes (3) Closed left hip fracture Status: Acute Current Visit: Yes Qualifiers: Encounter type: initial encounter Qualified Code(s): S72.002A - Fracture of unspecified part of neck of left femur, initial encounter for closed fracture Plan: Marianne out today with steri strips. Continue PT/OT. (4) Thrombocytopenia Status: Acute Current Visit: Yes
[2018-01-22] MEDS: RIVAROXABAN 10 MG TABLET PO SCH (21:01)
[2018-01-23] MEDS: ACETAMINOPHEN 500 MG TABLET PO SCH ×4 (01:13→20:25)
[2018-01-23] MEDS: CHOLECALCIFEROL (VIT D3) 1,000 UNIT TABLET PO SCH (08:31)
[2018-01-23] MEDS: DOCUSATE SODIUM 100 MG CAPSULE PO SCH (08:31)
[2018-01-23] MEDS: SERTRALINE HCL 50 MG TABLET PO SCH (08:31)
[2018-01-23] MEDS: FISH OIL 1,000 MG CAP PO SCH (10:18)
[2018-01-23] MEDS: HYDROcodone /APAP 5/325 1 EACH TABLET PO PRN (12:47)
[2018-01-23] MEDS: RIVAROXABAN 10 MG TABLET PO SCH (20:25)
[2018-01-24] MEDS: ACETAMINOPHEN 500 MG TABLET PO SCH ×4 (01:07→20:38)
[2018-01-24] MEDS: HYDROcodone /APAP 5/325 1 EACH TABLET PO PRN (08:49)
[2018-01-24] MEDS: SERTRALINE HCL 50 MG TABLET PO SCH (08:50)
[2018-01-24] MEDS: DOCUSATE SODIUM 100 MG CAPSULE PO SCH (08:50)
[2018-01-24] MEDS: CHOLECALCIFEROL (VIT D3) 1,000 UNIT TABLET PO SCH (08:50)
[2018-01-24] MEDS ORDERED: FISH OIL 1,000 MG CAP PO SCH (09:00)
[2018-01-24] MEDS: FISH OIL 1,000 MG CAP PO SCH (10:49)
[2018-01-24] MEDS: RIVAROXABAN 10 MG TABLET PO SCH (20:38)
[2018-01-25] MEDS: ACETAMINOPHEN 500 MG TABLET PO SCH ×4 (01:13→21:20)
[2018-01-25] MEDS: CHOLECALCIFEROL (VIT D3) 1,000 UNIT TABLET PO SCH (09:03)
[2018-01-25] MEDS: FISH OIL 1,000 MG CAP PO SCH (09:03)
[2018-01-25] MEDS: DOCUSATE SODIUM 100 MG CAPSULE PO SCH (09:03)
[2018-01-25] MEDS: SERTRALINE HCL 50 MG TABLET PO SCH (09:03)
[2018-01-25] MEDS: RIVAROXABAN 10 MG TABLET PO SCH (21:20)
[2018-01-26] MEDS: ACETAMINOPHEN 500 MG TABLET PO SCH ×4 (02:42→19:56)
[2018-01-26] MEDS: FISH OIL 1,000 MG CAP PO SCH (09:02)
[2018-01-26] MEDS: DOCUSATE SODIUM 100 MG CAPSULE PO SCH (09:02)
[2018-01-26] MEDS: CHOLECALCIFEROL (VIT D3) 1,000 UNIT TABLET PO SCH (09:02)
[2018-01-26] MEDS: SERTRALINE HCL 50 MG TABLET PO SCH (09:02)
[2018-01-26] MEDS: RIVAROXABAN 10 MG TABLET PO SCH (19:57)
[2018-01-27] MEDS: DOCUSATE SODIUM 100 MG CAPSULE PO SCH (08:31)
[2018-01-27] MEDS: ACETAMINOPHEN 500 MG TABLET PO SCH ×3 (08:31→21:00)
[2018-01-27] MEDS: SERTRALINE HCL 50 MG TABLET PO SCH (08:31)
[2018-01-27] MEDS: CHOLECALCIFEROL (VIT D3) 1,000 UNIT TABLET PO SCH (08:32)
[2018-01-27] MEDS: FISH OIL 1,000 MG CAP PO SCH (09:30)
[2018-01-27] MEDS: HYDROcodone /APAP 5/325 1 EACH TABLET PO PRN ×2 (15:10→20:59)
[2018-01-27] MEDS: RIVAROXABAN 10 MG TABLET PO SCH (20:43)
[2018-01-28] MEDS: ACETAMINOPHEN 500 MG TABLET PO SCH ×4 (02:00→20:30)
--- NOTE | 2018-01-28 07:31 | Inpatient Progress Note ---
Subjective - Required Recertification Statement I anticipate X number of days because-include discharge plan: 5 - Review of Systems Subjective: Patient without complaints. She is going on a home visit today for therapies to evaluate the potential for her returning home. Objective - Exam Vitals and I&O: Vital Signs Temp 98.2 F 01/27/18 21:00 Pulse 62 01/27/18 21:00 Resp 16 01/27/18 21:00 BP 136/72 01/27/18 21:00 Pulse Ox 97 01/27/18 21:00 Intake & Output 01/27/18 01/27/18 01/28/18 11:59 23:59 11:59 Intake Total 60 500 Balance 60 500 Intake: Oral 60 500 Other: Voiding Method Bedside Commode Bedside Commode # Voids 2 2 1 # Bowel Movements 1 General: Alert, Oriented to Person, Cooperative, No acute distress. No: Oriented to Place, Oriented to Time Lungs: Clear to auscultation, Normal air movement, Speaks full Sentences Cardiovascular: Irregularly Irregular - Results Results: Laboratory Results WBC 8.20 K/ul (4.00-12.00) 01/08/18 08:04 WBC Comment 5.73 thou/uL (4.00-12.00) 01/20/18 05:45 RBC 4.01 mil/uL (3.90-5.20) 01/20/18 05:45 Hgb 11.9 g/dL (12.0-16.0) L 01/08/18 08:04 Hemoglobin (Send Out) 11.8 g/dL (11.5-16.0) 01/20/18 05:45 Hct 35.0 % (34.5-46.5) 01/08/18 08:04 Hct (Send Out) 36.2 % (34.5-46.5) 01/20/18 05:45 MCV 87.9 fl (80.0-100.0) 01/08/18 08:04 MCV (Send Out) 90.3 fL (80.0-100.0) 01/20/18 05:45 MCH 29.4 pg (28.0-34.0) 01/20/18 05:45 MCHC 34.1 g/dL (30.0-36.0) 01/08/18 08:04 MCHC (Send Out) 32.6 g/dL (30.0-36.0) 01/20/18 05:45 RDW 14.9 % (11.3-14.3) H 01/08/18 08:04 RDW Coeff of Candace 15.1 % (11.3-14.7) H 01/20/18 05:45 Plt Count 232 thou/uL (130-400) 01/20/18 05:45 Neut % (Auto) 73.1 % (39.0-79.0) 01/05/18 05:30 Lymph % (Auto) 15.7 % (16.0-50.0) L 01/05/18 05:30 [place] % (Auto) 6.2 % (0.0-11.0) 01/05/18 05:30 Eos % (Auto) 3.7 % (0.0-6.8) 01/05/18 05:30 Baso % (Auto) 0.4 (0.0-1.5) 01/05/18 05:30 Neut # (Auto) 6.0 # k/uL (1.4-7.7) 01/05/18 05:30 Lymph # (Auto) 1.3 # k/uL (0.6-4.0) 01/05/18 05:30 [place] # (Auto) 0.5 # k/uL (0.0-0.9) 01/05/18 05:30 Eos # (Auto) 0.3 # k/uL (0.0-0.6) 01/05/18 05:30 Baso # (Auto) 0.0 # k/uL (0.0-0.5) 01/05/18 05:30 Absolute Lymphs (auto) 1.60 thou/uL (0.60-4.00) 01/20/18 05:45 Absolute Monos (auto) 0.42 thou/uL (0.00-0.90) 01/20/18 05:45 Absolute Basos (auto) 0.03 thou/uL (0.00-0.50) 01/20/18 05:45 Neutrophils % 57.9 % (39.0-79.0) 01/20/18 05:45 Reactive Lymphs % 1.0 % (0.0-5.0) 01/05/18 05:30 Absolute Neutrophils 3.32 thou/uL (1.50-7.70) 01/20/18 05:45 Lymphocytes 27.9 % (16.0-50.0) 01/20/18 05:45 Reactive Lymphs # 0.1 # k/uL (0.0-0.8) 01/05/18 05:30 Monocytes 7.3 % (0.0-11.0) 01/20/18 05:45 Absolute Eosinophils 0.36 thou/uL (0.00-0.60) 01/20/18 05:45 Basophilia % 0.6 % (0.0-1.5) 01/20/18 05:45 Eosinophil Count 6.3 % (0.0-6.8) 01/20/18 05:45 Sodium 135 mmol/L (136-145) L 01/05/18 05:30 Potassium 3.1 mmol/L (3.5-5.1) L 01/05/18 05:30 Chloride 103 mmol/L (98-107) 01/05/18 05:30 Carbon Dioxide 27 mmol/L (22-30) 01/05/18 05:30 BUN 12 mg/dL (7-17) 01/05/18 05:30 Creatinine 0.50 mg/dL (0.52-1.04) L 01/05/18 05:30 Estimated Creat Clear 105 01/05/18 05:30 Est GFR ( Amer) > 60 (60-) 01/05/18 05:30 Est GFR (Non-Af Amer) > 60 (60-) 01/05/18 05:30 Glucose 93 mg/dL (74-106) 01/05/18 05:30 Calcium 8.9 mg/dL (8.4-10.2) 01/05/18 05:30 Total Bilirubin 0.7 mg/dL (0.2-1.3) 01/05/18 05:30 AST 22 U/L (15-46) 01/05/18 05:30 ALT 23 U/L (13-69) 01/05/18 05:30 Alkaline Phosphatase 77 U/L (38-126) 01/05/18 05:30 Total Protein 5.9 g/dL (6.3-8.2) L 01/05/18 05:30 Albumin 3.1 g/dL (3.5-5.0) L 01/05/18 05:30 Assessment/Plan - Assessment/Plan (1) Irregular heart rhythm Status: Acute Current Visit: Yes (2) Dementia Status: Acute Current Visit: Yes (3) Closed left hip fracture Status: Acute Current Visit: Yes Qualifiers: Encounter type: initial encounter Qualified Code(s): S72.002A - Fracture of unspecified part of neck of left femur, initial encounter for closed fracture Plan: Will see how her home visit goes today before deciding on discharge plans. Continue PT/OT. (4) Thrombocytopenia Status: Acute Current Visit: Yes
[2018-01-28] MEDS: CHOLECALCIFEROL (VIT D3) 1,000 UNIT TABLET PO SCH (08:53)
[2018-01-28] MEDS: SERTRALINE HCL 50 MG TABLET PO SCH (08:53)
[2018-01-28] MEDS: FISH OIL 1,000 MG CAP PO SCH (08:53)
[2018-01-28] MEDS: DOCUSATE SODIUM 100 MG CAPSULE PO SCH (08:53)
[2018-01-28] MEDS: HYDROcodone /APAP 5/325 1 EACH TABLET PO PRN ×2 (08:53→20:32)
[2018-01-28] MEDS: RIVAROXABAN 10 MG TABLET PO SCH (20:30)
[2018-01-29] MEDS: ACETAMINOPHEN 500 MG TABLET PO SCH ×4 (02:25→20:06)
[2018-01-29] MEDS: CHOLECALCIFEROL (VIT D3) 1,000 UNIT TABLET PO SCH (08:23)
[2018-01-29] MEDS: DOCUSATE SODIUM 100 MG CAPSULE PO SCH (08:23)
[2018-01-29] MEDS: SERTRALINE HCL 50 MG TABLET PO SCH (08:23)
[2018-01-29] MEDS: FISH OIL 1,000 MG CAP PO SCH (11:36)
[2018-01-29] MEDS: RIVAROXABAN 10 MG TABLET PO SCH (20:06)
[2018-01-29] MEDS: HYDROcodone /APAP 5/325 1 EACH TABLET PO PRN (20:06)
--- NOTE | 2018-01-29 21:48 | Diagnostic Imaging Report ---
PINO ROMERO [facility] [address] [address] Report Submission Date: Jan 29, 2018 4:38:34 PM CDT Patient Study Name: CAROLINE CHUN Date: Jan 29, 2018 3:59:16 PM CDT Modality Type: DX Gender: F Description: PELVIS : 37 Institution: [facility] Physician: PINO ROMERO Left hip History: Postop AP and frogleg lateral projections the left hip demonstrate a total left hip replacement. The prosthetic components are in good alignment. Impression: Total left hip replacement. Electronically signed on Jan 29, 2018 4:38:34 PM CDT by: Aleah RIOS
[2018-01-30] MEDS: ACETAMINOPHEN 500 MG TABLET PO SCH ×4 (02:40→21:02)
[2018-01-30] MEDS: HYDROcodone /APAP 5/325 1 EACH TABLET PO PRN ×3 (07:49→20:59)
[2018-01-30] MEDS: SERTRALINE HCL 50 MG TABLET PO SCH (09:11)
[2018-01-30] MEDS: DOCUSATE SODIUM 100 MG CAPSULE PO SCH (09:11)
[2018-01-30] MEDS: CHOLECALCIFEROL (VIT D3) 1,000 UNIT TABLET PO SCH (09:12)
[2018-01-30] MEDS: FISH OIL 1,000 MG CAP PO SCH (10:25)
[2018-01-30] MEDS: RIVAROXABAN 10 MG TABLET PO SCH (20:59)
[2018-01-31] MEDS: ACETAMINOPHEN 500 MG TABLET PO SCH ×4 (04:17→20:03)
[2018-01-31] MEDS: SERTRALINE HCL 50 MG TABLET PO SCH (08:34)
[2018-01-31] MEDS: HYDROcodone /APAP 5/325 1 EACH TABLET PO PRN ×2 (08:34→13:59)
[2018-01-31] MEDS: DOCUSATE SODIUM 100 MG CAPSULE PO SCH (08:34)
[2018-01-31] MEDS: CHOLECALCIFEROL (VIT D3) 1,000 UNIT TABLET PO SCH (08:38)
[2018-01-31] MEDS: FISH OIL 1,000 MG CAP PO SCH (10:18)
[2018-01-31] MEDS: RIVAROXABAN 10 MG TABLET PO SCH (20:04)
[2018-02-01] MEDS: ACETAMINOPHEN 500 MG TABLET PO SCH ×4 (01:05→20:12)
[2018-02-01] MEDS: HYDROcodone /APAP 5/325 1 EACH TABLET PO PRN ×2 (08:26→12:27)
[2018-02-01] MEDS: DOCUSATE SODIUM 100 MG CAPSULE PO SCH (08:26)
[2018-02-01] MEDS: SERTRALINE HCL 50 MG TABLET PO SCH (08:26)
[2018-02-01] MEDS: CHOLECALCIFEROL (VIT D3) 1,000 UNIT TABLET PO SCH (08:27)
[2018-02-01] MEDS: FISH OIL 1,000 MG CAP PO SCH (09:53)
[2018-02-01] MEDS: RIVAROXABAN 10 MG TABLET PO SCH (20:12)
[2018-02-02] MEDS: ACETAMINOPHEN 500 MG TABLET PO SCH ×4 (01:00→19:43)
[2018-02-02] MEDS: DOCUSATE SODIUM 100 MG CAPSULE PO SCH (08:14)
[2018-02-02] MEDS: SERTRALINE HCL 50 MG TABLET PO SCH (08:14)
[2018-02-02] MEDS: CHOLECALCIFEROL (VIT D3) 1,000 UNIT TABLET PO SCH (08:15)
[2018-02-02] MEDS: HYDROcodone /APAP 5/325 1 EACH TABLET PO PRN ×2 (08:57→13:21)
[2018-02-02] MEDS: POLYETHYLENE GLYCOL 3350 17 GM POWD.PACK PO PRN (08:57)
[2018-02-02] MEDS: FISH OIL 1,000 MG CAP PO SCH (10:57)
[2018-02-02] MEDS: RIVAROXABAN 10 MG TABLET PO SCH (19:43)
[2018-02-03] MEDS: ACETAMINOPHEN 500 MG TABLET PO SCH ×4 (02:40→20:23)
[2018-02-03] MEDS: HYDROcodone /APAP 5/325 1 EACH TABLET PO PRN ×2 (08:11→13:11)
[2018-02-03] MEDS: CHOLECALCIFEROL (VIT D3) 1,000 UNIT TABLET PO SCH (09:11)
[2018-02-03] MEDS: DOCUSATE SODIUM 100 MG CAPSULE PO SCH (09:11)
[2018-02-03] MEDS: SERTRALINE HCL 50 MG TABLET PO SCH (09:11)
[2018-02-03] MEDS: FISH OIL 1,000 MG CAP PO SCH (09:11)
[2018-02-03 16:28] LABS: APPEARANCE,URINE CLOUDY (CLEAR); COLOR,URINE YELLOW (YELLOW); OCCULT BLOOD,URINE 1+ (NEGATIVE); UROBILINOGEN URINE 0.2 Eu (0.2-1.0)
[2018-02-03 16:31] LABS: YEAST,URINE FEW (NEGATIVE)
[2018-02-03] MEDS: RIVAROXABAN 10 MG TABLET PO SCH (20:23)
[2018-02-04] MEDS: ACETAMINOPHEN 500 MG TABLET PO SCH ×4 (02:41→20:50)
[2018-02-04] MEDS: SERTRALINE HCL 50 MG TABLET PO SCH (09:36)
[2018-02-04] MEDS: FISH OIL 1,000 MG CAP PO SCH (09:36)
[2018-02-04] MEDS: DOCUSATE SODIUM 100 MG CAPSULE PO SCH (09:37)
[2018-02-04] MEDS: HYDROcodone /APAP 5/325 1 EACH TABLET PO PRN ×3 (09:37→20:51)
[2018-02-04] MEDS: CHOLECALCIFEROL (VIT D3) 1,000 UNIT TABLET PO SCH (09:37)
[2018-02-04] MEDS: RIVAROXABAN 10 MG TABLET PO SCH (20:50)
[2018-02-05] MEDS: ACETAMINOPHEN 500 MG TABLET PO SCH ×2 (03:29→08:37)
--- NOTE | 2018-02-05 07:50 | Discharge Summary ---
Discharge Summary - Discharge Sumary History of Present Illness: This is an 82 year old female, patient of Dr. Braxton who last day had a fall in the bathroom of her home and incurred a fracture of her left hip. She was transported to [facility] for evaluation. On the day after the injury, Dr. Kt Sanders took her to the ER and she had a left hip arthroplasty. She had some bleeding during the surgery and was mildly thrombocytopenic, and as a result, Dr. Sanders has recommended against any anticoagulation for DVT prophylaxis postoperatively. Her post operative course has been unremarkable. Her hemoglobin this morning is 11.0, and her platelets are 101. She is having some pain, but says that the hydrocodone has been helpful in relieving this. She voices understanding that she is here for PT/OT. Her family is here at the bedside. Condition at Discharge: Stable Home Medications: Ambulatory Orders Medication Instructions Recorded Acetaminophen [Tylenol Extra 500 mg PO Q6H 01/08/18 Strength] Cholecalciferol (Vitamin D3) 2,000 unit PO DAILY 01/08/18 [Vitamin D3] Docusate Sodium [Colace] 100 mg PO DAILY 01/08/18 Craig-3S/Dha/Epa/Fish Oil [Fish 1 each PO DAILY 01/08/18 Oil Craig-3 Softgel] Polyethylene Glycol 3350 [Miralax] 17 gm PO 1100 01/08/18 Polyethylene Glycol 3350 [Miralax] 17 gm PO 1100 PRN 01/08/18 Sertraline HCl 50 mg PO DAILY 01/08/18 Nitrofurantoin Monohyd/M-Cryst 100 mg PO BID #14 capsule 02/05/18 [Macrobid 100 mg Capsule] Consultations this Visit: None Procedures this Visit: None Allergies/Adverse Reactions: Allergies Allergy/AdvReac Type Severity Reaction Status Date / Time Penicillins Allergy Rash Verified 01/04/18 13:03 Patient Problems: Current Active Problems Problem Status Onset Closed left hip fracture Acute Dementia Acute Depression Acute Irregular heart rhythm Acute Postoperative anemia Acute Thrombocytopenia Acute Umbilical hernia Acute Discharge Summary: Patient was admitted to SNF for therapy following a L hip fracture. She was slow to get started out of fear and pain but eventually did well. She was noted to be in afib - confirmed with EKG. On admission she was not on anticoagulation due to low platelets and bleeding. This resolved and I did have her on xarelto 10 mg for DVT prevention. Platelets remained stable. After discussion with family regarding her PCP discussion of her afib, her bleeding risk, and her fall risk, we elected not to do anticoagulation. Family understands risks of CVA vs bleeding/falls. Urine was cloudy and had a foul odor that did not resolve with increased fluid intake, and found to have a UTI - most likely from catheter placed during surgery. Antibiotics were started. Patient discharged home in good condition. Hospital Course: Discharge Dx: L hip fx. osteoporosis. dementia. depression. afib. Disposition - Home with home health
[2018-02-05] MEDS: DOCUSATE SODIUM 100 MG CAPSULE PO SCH (08:36)
[2018-02-05] MEDS: CHOLECALCIFEROL (VIT D3) 1,000 UNIT TABLET PO SCH (08:36)
[2018-02-05] MEDS: POLYETHYLENE GLYCOL 3350 17 GM POWD.PACK PO PRN (08:36)
[2018-02-05] MEDS: SERTRALINE HCL 50 MG TABLET PO SCH (08:36)
[2018-02-05] MEDS: FISH OIL 1,000 MG CAP PO SCH (10:33)
[2018-02-05] MEDS: HYDROcodone /APAP 5/325 1 EACH TABLET PO PRN (10:43)
[2018-02-05 13:44] VITALS: BP 160/83
== END 2018-02-05 10:50 | disposition home health service (06) | DRG 536 ==
LOC: SOUTH 12:05
PROVIDERS: ADMIT Family Medicine; ATTEND Family Medicine
DX: S72.002A Fracture of unspecified part of neck of left femur, initial encounter for closed fracture (principal); X58.XXXA Exposure to other specified factors, initial encounter; D64.9 Anemia, unspecified; F33.1 Major depressive disorder, recurrent, moderate; D69.6 Thrombocytopenia, unspecified; K42.9 Umbilical hernia without obstruction or gangrene
CPT/HCPCS: 80053; 81002; 85025; 85027; 87086; 87186; A9270-GY

== ENCOUNTER 2018-03-06 10:44 | Outpatient (CLI) | payer MEDICARE, OTHER ==
--- NOTE | 2018-03-06 12:34 | Diagnostic Imaging Report ---
DAVID ALBRIGHT [facility] [id number] [facility] [address] [id number] Report Submission Date: Mar 06, 2018 11:31:33 AM CDT Patient Study Name: CAROLINE CHUN Date: Mar 06, 2018 10:46:57 AM CDT Modality Type: DX Gender: F Description: ABDOMEN : 37 Institution: [facility] Physician: DAVID ALBRIGHT Examination: Abdomen History: DIARRHEA, HX CONSTIPATION (Hx) Findings: 2 views obtained of the abdomen. No abnormal dilation of the large or small bowel. Air and stool throughout the large bowel. No suspicious calcification projecting over the renal fossa or the lower pelvic region. Lumbar fixation hardware. Left hip replacement. Osseous degenerative changes. Impression: No obstruction. Electronically signed on Mar 06, 2018 11:31:33 AM CDT by: Patrice RIOS
== END 2018-03-06 10:45 ==
LOC: RAD 10:44
PROVIDERS: ATTEND Family Medicine
DX: R19.7 Diarrhea, unspecified (principal)
CPT/HCPCS: 74018